=== PATIENT | female | born 1985 | race African-American/Black ===

== ENCOUNTER 2017-10-20 10:42 | Outpatient (CLI) | payer BC ==
[2017-10-20 11:24] LABS: BILIRUBIN,URINE NEGATIVE (NEGATIVE)
[2017-10-20 11:39] LABS: WBC,URINE 0-3 /HPF (0-5)
[2017-10-20 11:45] LABS: BASOPHILS % (AUTO) 0.4 %; EOSINOPHILS # (AUTO) 0.1 10^3/uL (0.0-0.7); EOSINOPHILS % (AUTO) 1.1 %; HGB - HEMOGLOBIN 14.8 g/dL (12.0-16.0); LYMPHOCYTES # (AUTO) 2.2 10^3/uL (1.5-3.5); LYMPHOCYTES % (AUTO) 28.9 %; MEAN CORPUSCULAR HEMOGLOBIN 30.3 pg (27.0-31.0); MEAN CORPUSCULAR HGB CONC 34.3 g/dL (32.0-36.0); MEAN CORPUSCULAR VOLUME 88.2 fL (81.0-99.0); MEAN PLATELET VOLUME 9.8 fL (7.9-10.8); MONOCYTES # (AUTO) 0.4 10^3/uL (0.0-1.0); MONOCYTES % (AUTO) 5.8 %; NEUTROPHILS # (AUTO) 4.9 10^3/uL (1.5-6.6); NEUTROPHILS % (AUTO) 63.8 %; NUCLEATED RED BLOOD CELLS AUTO 0.1 /100WBC; RED BLOOD COUNT 4.88 10^6/uL (4.20-5.40); RED CELL DISTRIBUTION WIDTH 12.4 % (12.0-15.0); UNCORRECTED WHITE BLOOD COUNT 7.7 x10^3/uL; WHITE BLOOD COUNT 7.7 x10^3/uL (4.8-10.8)
[2017-10-21 10:12] LABS: TEST RESULT REPORT
== END 2017-10-20 10:43 | disposition home or self-care (01) ==
LOC: LAB 10:42
PROVIDERS: ATTEND Obstetrics & Gynecology
DX: Z36.9 Encounter for antenatal screening, unspecified (principal)
CPT/HCPCS: 36415; 81001; 81599; 85025; 86762; 86803; 86850; 86900; 86901; 87340; 87389

== ENCOUNTER 2017-11-10 10:23 | Outpatient (CLI) | payer BC ==
--- NOTE | 2017-11-11 08:59 | Ultrasound Report ---
DATE OF SERVICE: 11/10/2017 EARLY SECOND TRIMESTER ULTRASOUND: 11/10/2017 COMPARISON: None TECHNIQUE: Sonographic evaluation of single intrauterine . FINDINGS: Single intrauterine . PHYSICAL PRESENTATION: variable Cardiac: Heart rate 157 beats per minute. Placenta anterior. Amniotic fluid visually adequate. Cervical length 3.2 cm and closed. biometry: BPD 2.6 cm corresponds to 14 weeks 3 days. Head circumference 9.7 cm corresponds to 14 weeks 3 days. Abdominal circumference 7.9 cm corresponds to 14 weeks 2 days. Femur length 1.3 cm corresponds to 13 weeks 6 days. Estimated weight 91 grams. Maternal adnexa grossly unremarkable. No free fluid in the pelvis. IMPRESSION: Single intrauterine . Estimated gestational age 14 weeks 2 days via current ultrasound with OLGA 05/09/2018. TD: 11/10/2017 19:44 [email or web address]
== END 2017-11-10 10:24 | disposition home or self-care (01) ==
LOC: DI 10:23
PROVIDERS: ATTEND Obstetrics & Gynecology
DX: Z36.87 Encounter for antenatal screening for uncertain dates (principal)
CPT/HCPCS: 76805; 76817

== ENCOUNTER 2017-11-17 08:00 | Outpatient (CLI) | payer BC | END 2017-11-17 08:01 | disposition home or self-care (01) | LOC: LAB.R 08:00 | PROVIDERS: ATTEND Obstetrics & Gynecology | DX: R53.0 Neoplastic (malignant) related fatigue (principal) | CPT/HCPCS: 87086 ==

== ENCOUNTER 2017-12-09 07:12 | Outpatient (CLI) | payer BC ==
--- NOTE | 2017-12-13 10:50 | Ultrasound Report ---
OB ULTRASOUND: 12/09/2017 CLINICAL INDICATION: anatomy. COMPARISON: 11/10/2017. CLINICAL INDICATIONS: anatomy. TECHNIQUE: Real-time scanning was performed with new accounts banking representative static images obtained. LAST MENSTRUAL PERIOD 08/02/2017 Clinical Age 18 weeks 3 days US Age 18 weeks 2 days EFW Hadlock 242 g EFW% Hadlock 49% Heart Rate 142 bpm EDC 05/09/2018 US EDC 05/10/2018 BPD Hadlock 18 weeks 1 day; Mean mm 40.1 HC Hadlock 18 weeks 0 days; Mean mm 148.7 AC Hadlock 18 weeks 3 days; Mean mm 129.4 FL Hadlock 18 weeks 4 days; Mean mm 28.1 Presentation variable Placental Location anterior Cervical Length 3.8 cm Amniotic Fluid 4.4 cm FINDINGS: There is a single viable intrauterine gestation, in variable position. heart rate is 142 BPM. The placenta is anterior, with likely eccentric cord insertion, but it was difficult to visualize due to adjacent parts. Amniotic fluid volume is subjectively normal, with a deepest pocket of 4.4 cm. The placenta is anterior, without evidence of previa. The size of the fetus measures 18 weeks 2 days (18 weeks 3 days by previous sonogram ). The following anatomic structures were visualized and appear normal: The intracranial contents, including the ventricles and posterior fossa; the lips and orbits; the spine; the heart, including 4 chamber view and outflow tracts, and diaphragm; the abdominal contents, including the stomach, the bilateral kidneys, and urinary bladder, as well as a normal 3 vessel cord; 4 limbs. Incidental note is made of an 1.4 cm anterior leiomyoma. No free fluid or adnexal lesion is appreciated. IMPRESSION: SINGLE VIABLE INTRAUTERINE GESTATION WITH EXPECTED GROWTH FROM PREVIOUS SONOGRAM. NORMAL ANATOMIC SURVEY. POSSIBLE ECCENTRIC PLACENTAL CORD INSERTION, BUT THIS WAS DIFFICULT TO EVALUATE DUE TO ADJACENT STRUCTURES. CONSIDER FOLLOWUP IN THE THIRD TRIMESTER. TD: 12/09/2017 14:22 HERMES
== END 2017-12-09 07:13 | disposition home or self-care (01) ==
LOC: DI 07:12
PROVIDERS: ATTEND Obstetrics & Gynecology
DX: Z36.9 Encounter for antenatal screening, unspecified (principal)
CPT/HCPCS: 76811

== ENCOUNTER 2018-01-27 10:55 | Outpatient (CLI) | payer BC ==
--- NOTE | 2018-01-30 15:38 | Ultrasound Report ---
OB FOLLOWUP: 01/27/2018 CLINICAL INDICATION: Check cord insertion into placenta. COMPARISON: 12/09/2017. TECHNIQUE: Real-time scanning was performed with insurance follow up representative static images obtained. LAST MENSTRUAL PERIOD 08/02/2017 Clinical Age 25 weeks 3 days US Age 25 weeks 2 days EFW Hadlock 801 grams EFW% Hadlock 37% Heart Rate 146 bpm EDC 05/09/2018 US EDC 05/10/2018 BPD Hadlock 25 weeks 0 days; Mean mm 62 HC Hadlock 25 weeks 1 day; Mean mm 231 AC Hadlock 25 weeks 1 day; Mean mm 206 FL Hadlock 25 weeks 5 days; Mean mm 47 Presentation variable Placental Location anterior Cervical Length -- Amniotic Fluid MATTHIAS 15.5 cm; FINDINGS: There is a single viable intrauterine gestation, in variable position. heart rate is 146 BPM. Amniotic fluid volume is normal, with an MATTHIAS of 15.5. The cord insertion into the placenta is eccentric, but not marginal. By size, the fetus measures 25 weeks 2 days (25 weeks 3 days by initial sonogram). A small anterior leiomyoma is again noted. IMPRESSION: SINGLE VIABLE INTRAUTERINE GESTATION, WITH EXPECTED GROWTH. ECCENTRIC CORD INSERTION. TD: 01/27/2018 13:17 HERMES
== END 2018-01-27 10:56 | disposition home or self-care (01) ==
LOC: DI 10:55
PROVIDERS: ATTEND Obstetrics & Gynecology
DX: Z36.9 Encounter for antenatal screening, unspecified (principal)
CPT/HCPCS: 76816

== ENCOUNTER 2018-02-15 14:49 | Outpatient (CLI) | payer BC ==
[2018-02-15 19:19] LABS: MEAN CORPUSCULAR HEMOGLOBIN 30.8 pg (27.0-31.0); MEAN CORPUSCULAR HGB CONC 33.7 g/dL (32.0-36.0); MEAN CORPUSCULAR VOLUME 91.4 fL (81.0-99.0); MEAN PLATELET VOLUME 9.9 fL (7.9-10.8); RED BLOOD COUNT 3.59 10^6/uL (4.20-5.40); RED CELL DISTRIBUTION WIDTH 13.6 % (12.0-15.0); WHITE BLOOD COUNT 8.5 x10^3/uL (4.8-10.8)
== END 2018-02-15 14:50 | disposition home or self-care (01) ==
LOC: LAB.N 14:49
PROVIDERS: ATTEND Obstetrics & Gynecology
DX: Z34.90 Encounter for supervision of normal pregnancy, unspecified, unspecified trimester (principal)
CPT/HCPCS: 36415; 82950; 86850

== ENCOUNTER 2018-02-26 20:22 | Outpatient (CLI) | payer BC ==
[2018-02-26 20:43] LABS: BILIRUBIN,URINE NEGATIVE (NEGATIVE); GLUCOSE, URINE (UA) NEGATIVE (NEGATIVE); KETONES,URINE (UA) NEGATIVE (NEGATIVE); LEUKOCYTE ESTERASE, URINE NEGATIVE (NEGATIVE); NITRITE,URINE NEGATIVE (NEGATIVE); OCCULT BLOOD,URINE NEGATIVE (NEGATIVE); PH,URINE 6.5 PH (5.0-7.5); PROTEIN,URINE NEGATIVE (NEGATIVE); UROBILINOGEN,URINE 0.2 (NORMAL) E.U./dL (NORMAL)
[2018-02-26 20:45] LABS: CLARITY,URINE CLEAR (CLEAR)
[2018-02-26 20:53] LABS: BACTERIA,URINE Moderate /HPF (None Seen); RBC,URINE None Seen /HPF (0-5); SQUAMOUS EPITHELIAL CELL,UR MANY Squamous (<= Few)
[2018-02-26 20:57] VITALS: BP 119/79
[2018-02-26 21:52] LABS: URIC ACID 6.6 mg/dL (2.6-7.2)
[2018-02-26 21:57] LABS: BASOPHILS % (AUTO) 0.3 %; EOSINOPHILS # (AUTO) 0.2 10^3/uL (0.0-0.7); EOSINOPHILS % (AUTO) 1.9 %; HGB - HEMOGLOBIN 10.2 g/dL (12.0-16.0); LYMPHOCYTES % (AUTO) 37.7 %; MEAN CORPUSCULAR HEMOGLOBIN 30.2 pg (27.0-31.0); MEAN CORPUSCULAR HGB CONC 33.1 g/dL (32.0-36.0); MEAN CORPUSCULAR VOLUME 91.4 fL (81.0-99.0); MEAN PLATELET VOLUME 9.8 fL (7.9-10.8); MONOCYTES # (AUTO) 0.5 10^3/uL (0.0-1.0); MONOCYTES % (AUTO) 5.7 %; NEUTROPHILS # (AUTO) 4.3 10^3/uL (1.5-6.6); NEUTROPHILS % (AUTO) 54.4 %; PLT - PLATELET COUNT 169 10^3/uL (130-450); RED BLOOD COUNT 3.39 10^6/uL (4.20-5.40); RED CELL DISTRIBUTION WIDTH 12.9 % (12.0-15.0); WHITE BLOOD COUNT 7.9 x10^3/uL (4.8-10.8)
== END 2018-02-26 21:45 | disposition home or self-care (01) ==
LOC: WFO 20:22 → FBP 20:24 → WFO 21:45
PROVIDERS: ATTEND Obstetrics & Gynecology
DX: O12.03 Gestational edema, third trimester (principal); Z3A.29 29 weeks gestation of pregnancy
CPT/HCPCS: 36415; 81001; 83615; 84450; 84550; 85025; 87086; 99213

== ENCOUNTER 2018-03-02 15:00 | Emergency (ER) | payer BC ==
[2018-03-02 15:15] VITALS: BP 130/79
--- NOTE | 2018-03-02 15:27 | ED Physician Documentation ---
PD HPI ABD PAIN - Stated complaint Stated Complaint: ABD PX/CHEST PX/30 WKS PREG - Chief complaint Chief Complaint: Abd Pain - History obtained from History obtained from: Patient - History of Present Illness Timing - onset: Today ( at 30 weeks gestation presents with central abdominal pain that comes about every 10 minutes and lasts about 2 minutes and feels like a squeezing. There is no associated bleeding or fluid loss. She does have some mild right-sided chest pain as well and pedal edema for the last week. She is a patient of Dr. Sanchez.) Review of Systems Ten Systems: 10 systems reviewed and negative Constitutional: denies: Fever, Chills Respiratory: denies: Dyspnea GI: denies: Nausea, Constipation, Diarrhea PD PAST MEDICAL HISTORY - Past Medical History Past Medical History: No - Present Medications Home Medications: Ambulatory Orders Medication Instructions Recorded Confirmed [id number]/FA/Omega3/Dha/Fish Oil 03/02/18 [ Gummies] - Allergies Allergies/Adverse Reactions: Allergies Allergy/AdvReac Type Severity Reaction Status Date / Time No Known Drug Allergies Allergy Verified 03/02/18 15:15 - Living Situation Living Situation: reports: With spouse/s.o. - Social History Does the pt smoke?: No Does the pt drink ETOH?: No Does the pt have substance abuse?: No - Family History Family history: reports: Non contributory PD ED PE NORMAL - Vitals Vital signs reviewed: Yes - General General: Alert and oriented X 3, No acute distress - HEENT HEENT: PERRL, EOMI - Neck Neck: Supple, no meningeal sign, No bony TTP - Cardiac Cardiac: RRR, No murmur - Respiratory Respiratory: No respiratory distress, Clear bilaterally - Abdomen Abdomen: Normal bowel sounds, Soft, Non tender, Other (gravid) - Back Back: No CVA TTP, No spinal TTP - Derm Derm: Normal color, Warm and dry - Extremities Extremities: Other (mod pedal edema) - Neuro Neuro: Alert and oriented X 3, Normal speech - Psych Psych: Normal mood, Normal affect Results - Vitals Vitals: Vital Signs - 24 hr 03/02/18 15:13 Temperature 36.7 C Heart Rate 82 Respiratory 16 Rate Blood Pressure 130/79 O2 Saturation 100 Oxygen O2 Source Room air PD MEDICAL DECISION MAKING - ED course ED course: 33-year-old woman whose main complaint is central squeezing abdominal pain that lasts for 2 minutes and comes about every 10 minutes starting today. She is 30 weeks . There is no fluid loss or bleeding. She has slightly decreased motion today. This is concerning for early labor and after my initial evaluation I called her OB Dr. Kathy Bhatti who will see her in labor and delivery and she will be immediately transferred across the [place]. Departure - Departure Disposition: ED Place in Observation Clinical Impression: Abdominal pain Qualifiers: Abdominal location: generalized Qualified Code(s): R10.84 - Generalized abdominal pain Qualifiers: Weeks of gestation: 30 weeks Qualified Code(s): Z3A.30 - 30 weeks gestation of Condition: Stable
[2018-03-02 15:40] LABS: BILIRUBIN,URINE NEGATIVE (NEGATIVE); GLUCOSE, URINE (UA) NEGATIVE (NEGATIVE); KETONES,URINE (UA) TRACE mg/dL (NEGATIVE); LEUKOCYTE ESTERASE, URINE NEGATIVE (NEGATIVE); NITRITE,URINE NEGATIVE (NEGATIVE); OCCULT BLOOD,URINE NEGATIVE (NEGATIVE); PH,URINE 6.5 PH (5.0-7.5); PROTEIN,URINE 30 mg/dL (NEGATIVE); UROBILINOGEN,URINE 0.2 (NORMAL) E.U./dL (NORMAL)
[2018-03-02 15:42] LABS: CLARITY,URINE HAZY (CLEAR)
[2018-03-02 15:59] LABS: RBC,URINE 0-5 /HPF (0-5)
[2018-03-02 16:00] LABS: AMORPHOUS SEDIMENT,UR Rare /LPF; BACTERIA,URINE Many /HPF (None Seen); SQUAMOUS EPITHELIAL CELL,UR MANY Squamous (<= Few)
== END 2018-03-02 15:35 | disposition home or self-care (01) ==
LOC: ED 15:00
DX: O26.893 Other specified pregnancy related conditions, third trimester (principal); R10.84 Generalized abdominal pain; Z3A.30 30 weeks gestation of pregnancy
CPT/HCPCS: 36415; 81001; 81003; 82565; 82570; 82731; 83615; 84156; 84450; 85025; 87086; 87797; 99283

== ENCOUNTER 2018-03-02 15:48 | Outpatient (CLI) | payer BC ==
[2018-03-02 16:11] VITALS: BP 135/80
[2018-03-02 16:47] LABS: BASOPHILS % (AUTO) 0.4 %; EOSINOPHILS # (AUTO) 0.2 10^3/uL (0.0-0.7); EOSINOPHILS % (AUTO) 2.9 %; HGB - HEMOGLOBIN 9.9 g/dL (12.0-16.0); LYMPHOCYTES # (AUTO) 2.6 10^3/uL (1.5-3.5); LYMPHOCYTES % (AUTO) 30.7 %; MEAN CORPUSCULAR HEMOGLOBIN 30.6 pg (27.0-31.0); MEAN CORPUSCULAR HGB CONC 33.5 g/dL (32.0-36.0); MEAN CORPUSCULAR VOLUME 91.3 fL (81.0-99.0); MEAN PLATELET VOLUME 9.4 fL (7.9-10.8); MONOCYTES # (AUTO) 0.7 10^3/uL (0.0-1.0); MONOCYTES % (AUTO) 8.2 %; NEUTROPHILS # (AUTO) 4.9 10^3/uL (1.5-6.6); NEUTROPHILS % (AUTO) 57.8 %; PLT - PLATELET COUNT 160 10^3/uL (130-450); RED BLOOD COUNT 3.25 10^6/uL (4.20-5.40); RED CELL DISTRIBUTION WIDTH 12.9 % (12.0-15.0); WHITE BLOOD COUNT 8.4 x10^3/uL (4.8-10.8)
[2018-03-02 16:57] LABS: CREATININE 0.6 mg/dL (0.4-1.0)
[2018-03-02 17:24] LABS: CREATININE,URINE 202.2 mg/dL; PROTEIN/CREATININE RATIO,URINE 0.2 (<=0.2)
== END 2018-03-02 17:55 | disposition home or self-care (01) ==
LOC: WFO 15:48 → FBP 15:50 → WFO 17:55
PROVIDERS: ATTEND Obstetrics & Gynecology
DX: O26.893 Other specified pregnancy related conditions, third trimester (principal); R10.9 Unspecified abdominal pain; Z3A.30 30 weeks gestation of pregnancy
CPT/HCPCS: 36415; 82565; 82570; 82731; 83615; 84156; 84450; 85025; 87797

== ENCOUNTER 2018-03-03 04:27 | Outpatient (CLI) | payer BC ==
[2018-03-03 19:54] LABS: TOTAL VOLUME 24HRS,URINE 1250 mL
[2018-03-03 20:02] LABS: TOTAL PROTEIN 24HR,URINE 200 mg/24hr (40-150); TOTAL PROTEIN,URINE TIMED 16 mg/dL
== END 2018-03-03 23:59 ==
LOC: LAB.R 04:27
PROVIDERS: ATTEND Obstetrics & Gynecology
DX: O13.9 Gestational [pregnancy-induced] hypertension without significant proteinuria, unspecified trimester (principal)
CPT/HCPCS: 84156

== ENCOUNTER 2018-03-09 19:03 | Observation (INO) | payer BC ==
[2018-03-09 20:00] LABS: BILIRUBIN,URINE NEGATIVE (NEGATIVE); GLUCOSE, URINE (UA) NEGATIVE (NEGATIVE); KETONES,URINE (UA) NEGATIVE (NEGATIVE); LEUKOCYTE ESTERASE, URINE NEGATIVE (NEGATIVE); NITRITE,URINE NEGATIVE (NEGATIVE); OCCULT BLOOD,URINE NEGATIVE (NEGATIVE); PROTEIN,URINE 30 mg/dL (NEGATIVE); UROBILINOGEN,URINE 0.2 (NORMAL) E.U./dL (NORMAL)
[2018-03-09 20:01] LABS: BASOPHILS % (AUTO) 0.2 %; EOSINOPHILS # (AUTO) 0.2 10^3/uL (0.0-0.7); EOSINOPHILS % (AUTO) 2.1 %; HGB - HEMOGLOBIN 10.4 g/dL (12.0-16.0); LYMPHOCYTES # (AUTO) 2.9 10^3/uL (1.5-3.5); MEAN CORPUSCULAR HEMOGLOBIN 30.1 pg (27.0-31.0); MEAN CORPUSCULAR HGB CONC 33.4 g/dL (32.0-36.0); MEAN CORPUSCULAR VOLUME 90.1 fL (81.0-99.0); MEAN PLATELET VOLUME 9.9 fL (7.9-10.8); MONOCYTES # (AUTO) 0.6 10^3/uL (0.0-1.0); MONOCYTES % (AUTO) 5.9 %; NEUTROPHILS # (AUTO) 6.4 10^3/uL (1.5-6.6); NEUTROPHILS % (AUTO) 62.8 %; PLT - PLATELET COUNT 182 10^3/uL (130-450); RED BLOOD COUNT 3.45 10^6/uL (4.20-5.40); RED CELL DISTRIBUTION WIDTH 12.9 % (12.0-15.0); WHITE BLOOD COUNT 10.1 x10^3/uL (4.8-10.8)
[2018-03-09 20:03] LABS: CLARITY,URINE CLEAR (CLEAR)
--- NOTE | 2018-03-09 20:05 | PROVIDER PROGRESS NOTE ---
Subjective - Prog Note Date Prog Note Date: 03/09/18 Prog Note Time: 19:55 - Subjective Pt reports feeling: No change Subjective: Mary is a 33-year-old primigravida at 31 weeks and 1 day gestation who achieved with assisted reproduction/IVF. Today she notes increased pedal edema with mild headache. On November 17 her baseline blood pressure was 102/60 at 15 weeks EGA. Patient denies history of hypertension or cardiovascular disease. Today's blood pressure is 132/70. She awoke with headache and swollen face. She has no sinus difficulties postnasal drip or allergic rhinitis. She reports no visual changes. She reports no epigastric tenderness but notes mild nausea. She is able to hold liquids and solids down. On March 02, she was evaluated by Dr. Maloney for decreased movement and NST was reactive. At that time she was noted to be anemic with a hemoglobin of 9.9 and platelets of 160. Creatinine is 0.6 AST 25 and urine protein creatinine ratio was normal at 0.2. 24 hour urine protein was 200 g. fibronectin negative Objective - Vital Signs/Intake & Output Vital Signs: Vital Signs x48h Temp Pulse Resp BP Pulse Ox 03/09/18 19:20 99.3 F 75 16 135/75 H 99 - Lab Results Fish Bones: 03/09/18 19:35 03/09/18 19:35 Exam - Exam Vital Signs: Vital Signs (72 hours) 03/09/18 19:20 Temperature 99.3 F Heart Rate [ 75 Monitoring electrodes] Respiratory 16 Rate Blood Pressure 135/75 H [Left Brachial artery] O2 Saturation 99 General: Alert, Oriented x3, Cooperative HEENT: EOMI, Mucous membr. moist/pink, Other (No sinus tenderness;) Lungs: Clear to auscultation Cardiovascular: Regular rate, No murmurs Abdomen: Normal bowel sounds, No tenderness, Other (Uterus appropriate size soft nontender no contractions; external monitor tracing category 1 with rare contractions baseline 130s-140s moderate variability) Extremities: Other (Patient has moderate pitting edema extending up 10 cm from the ankle bilaterally) Neurological: Normal gait, Normal speech, Normal tone, Sensation intact, Cranial nerves 3-12 NL, Reflexes 2+ Psych/Mental Status: Mental status NL, Mood NL Assessment/Plan - Assessment/Plan Assessment: IVF pregnancies are known to have a greater incidence of complications such as preeclampsia/gestational hypertension. Her current blood pressure is not hypertensive but is elevated over her baseline BP at 15 weeks gestation. Her labs from 02 March were not alarming. However today's labs show an increase in the urine protein / creatinine ratio and probable increase in edema. Platelets remain stable. To establish the diagnosis of preeclampsia blood pressure measurements and urine proteins must be 6 hours apart. Await liver enzyme data Plan: High probability of mild preeclampsia or greater but to establish the diagnosis further observation is required. There is significant probability of delivery due to the progression of preeclampsia. Patient converted to observation status
[2018-03-09 20:10] LABS: BACTERIA,URINE Few /HPF (None Seen); CREATININE,URINE 54.2 mg/dL; PROTEIN/CREATININE RATIO,URINE 0.8 (<=0.2); RBC,URINE 3 /HPF (0-5); SQUAMOUS EPITHELIAL CELL,UR MOD Squamous (<= Few)
[2018-03-09 20:13] LABS: URIC ACID 7.2 mg/dL (2.6-7.2)
[2018-03-09 20:38] LABS: ALBUMIN 2.8 g/dL (3.2-5.5); ALBUMIN/GLOBULIN RATIO 0.9 (1.0-2.2); BILIRUBIN,TOTAL 0.4 mg/dL (0.2-1.0); CALCIUM 8.3 mg/dL (8.5-10.3); CREATININE 0.6 mg/dL (0.4-1.0); TOTAL PROTEIN 5.9 g/dL (6.7-8.2)
[2018-03-09] MEDS ORDERED: SODIUM CHLORIDE FLUSH 0.9% 10 ML SYRINGE IVP PRN (21:25)
[2018-03-09] MEDS ORDERED: ACETAMINOPHEN 325 MG TABLET PO PRN (21:25)
[2018-03-09] MEDS ORDERED: ZOLPIDEM 5 MG TABLET PO PRN (21:25)
[2018-03-09] MEDS ORDERED: PRENATAL VITAMIN TABLET PO SCH (22:00)
[2018-03-09] MEDS ORDERED: BETAMETHASONE 30 MG/5 ML VIAL IM ONE (22:31)
[2018-03-09] MEDS: ASPIRIN CHEW 81 MG TABLET PO SCH (22:58)
--- NOTE | 2018-03-09 23:18 | Ultrasound Report ---
EXAM: LIMITED OBSTETRICAL ULTRASOUND EXAM DATE: 03/09/2018 10:58 PM. CLINICAL HISTORY: Small for gestational age. Likely preeclampsia. COMPARISON: 01/28/2080. TECHNIQUE: Real-time sonographic evaluation of the fetus performed by the scroll assembler. Multiple repre sentative static images were saved for review. DATING: Established EGA 31 weeks 1 day with OLGA 05/10/2018 based on LMP. EGA 30 weeks 3 days with OLGA 05/15/2018 based on the current ultrasound. GENERAL EVALUATION King . Cardiac activity: 145 bpm. movement: Visualized. Presentation: Cephalic. Placenta: Anterior position. No evidence for previa. Umbilical cord: 3 vessel cord. Central placental cord origin. Amniotic fluid: MATTHIAS 15.4 cm. MVP 4.6 cm. BIOMETRY Bi-Parietal Diameter (BPD): 7.7 cm, 31 weeks 0 days Head Circumference (HC): 28.4 cm, 31 weeks 1 day Abdominal Circumference (AC): 26.5 cm, 30 weeks 4 days Femur Length (FL): 5.7 cm, 29 weeks 5 days Estimated Weight: 1574 gm, 37.2 percentile for weeks/days. MATERNAL STRUCTURES Uterus: Anterior fibroid 2.3 x 1.4 x 0.8 cm. IMPRESSION: 1. King live intrauterine with gestational age 31 weeks 1 day based on LMP. 2. Estimated weight is within expected limits for assigned dating. AMOS Referring Provider Line: [phone] SITE ID: [id number]
--- NOTE | 2018-03-09 23:18 | Ultrasound Preliminary Report ---
Exam: US OB LIMITED IMPRESSION: 1. King live intrauterine with gestational age 31 weeks 1 day based on LMP. 2. Estimated weight is within expected limits for assigned dating. RADI SITE ID: [id number]
--- NOTE | 2018-03-09 23:22 | HISTORY & PHYSICAL EXAMINATION ---
DATE OF SERVICE: 03/09/2018 Physician: Perez Gregg MD DIAGNOSES 1. Marked edema. 2. Epigastric / Liver tenderness. 3. Headache. 4. Blood pressure above baseline. HISTORY OF PRESENT ILLNESS: Patient is a 33-year-old primigravida at 31 weeks' and 1 day gestation who achieved through assisted reproduction/IVF. Today, she reports persistent mild headache, increased lower extremity and facial swelling accompanied by an epigastric tenderness. Her baseline blood pressure at 15 weeks' gestation was 102/60. Currently, it is 135/75. She was evaluated on 03/02/[address] Bhatti for possibility of preeclampsia. At that time, her urine protein creatinine ratio was 0.2 and 24- hour urine protein 200 mg. She was discharged home. In terms of her headache, she has no sinus difficulties, postnasal drip, or allergic rhinitis. She does not report visual changes other than blurry vision. She does not suspect labor or ruptured membranes. Currently, she is able to hold down oral liquids and solids. During her evaluation earlier today, her urine protein-creatinine ratio tamie to 0.8. Her platelets stayed stable at 182. There was mild hyponatremia at 29. Liver enzymes appeared to be normal. PAST MEDICAL HISTORY: Patient has no history of hypertension or cardiovascular disease. 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 . IVF embryo transfers x2. Her first embryo transfer resulted in a twin that was spontaneously aborted at 9 weeks. Current is a result of the second embryo transfer. Reference notes from [facility]. GENETICS HISTORY: Strong family history of hypertension inclusive of mother brothers sisters and aunts. Family history of stroke. No known anomalies or familial inheritable disease. SOCIAL HISTORY: Happily . 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 Grew up in [place]. No drug, tobacco or alcohol use. REVIEW OF SYSTEMS CONSTITUTIONAL: Negative. HEENT: Facial edema as noted before. CARDIAC: Negative. PULMONARY: Negative. GI: Negative. : Reference HPI. MUSCULOSKELETAL: Edema, otherwise negative. NEUROLOGIC: Normal. SKIN: Normal. LYMPHATIC/HEMATOLOGIC: Normal. PHYSICAL EXAMINATION GENERAL: Patient quiet, lying on a stretcher. VITAL SIGNS: Temperature 99.3, pulse 75, respirations 116, blood pressure 135/ 75, pulse oximetry 99%. HEENT: Supple neck. No thyromegaly. Moist mucous membranes. EOMI. PERRLA. No icterus. Thyroid normal size. No nodules or tenderness. LUNGS: Clear to auscultation. CARDIAC: Regular rate. No significant murmur, other than murmur of . BREASTS: Symmetric, full. No mass or tenderness. ABDOMEN: Nondistended. Liver span increased to 12 cm with mild tenderness. No Lee's sign or gallbladder tenderness. No other tenderness found.Normal bowel sounds. UTERUS: Approximately 29 cm, normal resting tone. No contractions noted. Vertex by Zoltan maneuvers. PELVIC EXAM: A pelvic exam was not completed because patient has no contractions or suspicion of labor. EXTREMITIES: Marked bilateral pitting edema extending up 10-12 cm from the ankles bilaterally. Finger edema and mild facial edema. NEUROLOGIC: Normal speech, normal tone and sensation. Cranial nerves grossly intact. Reflexes 2+. SKIN: No lesions found or rash. LABORATORY DATA: Hemoglobin 10.4, platelets 182. Sodium 129, potassium 3.8. Urine protein-creatinine ratio is 0.8. Urinalysis +3 proteinuria. Serum creatinine 0.6, glucose 95, uric acid 7.2, total bilirubin 0.4, AST 26, total protein low at 5.9, albumin low 2.8. ASSESSMENT: IVF pregnancies are known to have a greater incidence of complications, particularly preeclampsia/gestational hypertension. Her current blood pressure is not hypertensive but significantly elevated over her baseline BP. Today's labs show urine protein-creatinine ratio consistent with a preeclamptic process in evolution. Her increase in edema from my last encounter is remarkable. Her right upper quadrant/ epigastric gastric complaints and tenderness do not correspond to any hepatic enzyme changes as of yet. A diagnosis of preeclampsia requires blood pressure and laboratory measurements at least 6 hours apart. Given the degree of risk and the quick evolution of clinical signs, caution is warranted. Moreover, patient will probably not deliver at term, particularly if the process continues to evolve. PLAN 1. Observation with serial blood pressure checks. 2. Serial lab checks to determine if the preeclamptic process is accelerating. 3. Mini dose aspirin daily. 4. Will review case with Maternal Medicine once the laboratory data is complete. It may be vee for patient to have a visit at [facility]. 5. Course of betamethasone 12 mg every 24 hours 2 doses total 6. Fundal height still like lagging. Prior growth check ultrasound was at the 37th percentile over a month ago. Will repeat ultrasound TD: 03/09/2018 23:21 HERMES
[2018-03-10] MEDS ORDERED: SODIUM CHLORIDE FLUSH 0.9% 10 ML SYRINGE IVP SCH (01:00)
[2018-03-10 05:18] LABS: BILIRUBIN,URINE NEGATIVE (NEGATIVE); GLUCOSE, URINE (UA) NEGATIVE (NEGATIVE); KETONES,URINE (UA) NEGATIVE (NEGATIVE); LEUKOCYTE ESTERASE, URINE NEGATIVE (NEGATIVE); NITRITE,URINE NEGATIVE (NEGATIVE); OCCULT BLOOD,URINE NEGATIVE (NEGATIVE); PROTEIN,URINE 30 mg/dL (NEGATIVE); UROBILINOGEN,URINE 0.2 (NORMAL) E.U./dL (NORMAL)
[2018-03-10 05:33] LABS: BACTERIA,URINE None Seen /HPF (None Seen); CASTS, URINE 0-2 Granular Casts /LPF; CLARITY,URINE CLEAR (CLEAR); RBC,URINE None Seen /HPF (0-5); SQUAMOUS EPITHELIAL CELL,UR RARE Squamous (<= Few)
[2018-03-10 05:57] LABS: BASOPHILS % (AUTO) 0.2 %; EOSINOPHILS % (AUTO) 0.2 %; HGB - HEMOGLOBIN 10.2 g/dL (12.0-16.0); LYMPHOCYTES # (AUTO) 2.1 10^3/uL (1.5-3.5); LYMPHOCYTES % (AUTO) 20.1 %; MEAN CORPUSCULAR HEMOGLOBIN 30.5 pg (27.0-31.0); MEAN CORPUSCULAR HGB CONC 33.8 g/dL (32.0-36.0); MEAN CORPUSCULAR VOLUME 90.4 fL (81.0-99.0); MEAN PLATELET VOLUME 9.8 fL (7.9-10.8); MONOCYTES # (AUTO) 0.2 10^3/uL (0.0-1.0); MONOCYTES % (AUTO) 2.1 %; NEUTROPHILS # (AUTO) 8.2 10^3/uL (1.5-6.6); NEUTROPHILS % (AUTO) 77.4 %; PLT - PLATELET COUNT 158 10^3/uL (130-450); RED BLOOD COUNT 3.34 10^6/uL (4.20-5.40); RED CELL DISTRIBUTION WIDTH 12.9 % (12.0-15.0); WHITE BLOOD COUNT 10.6 x10^3/uL (4.8-10.8)
[2018-03-10 06:10] LABS: URIC ACID 7.3 mg/dL (2.6-7.2)
[2018-03-10] MEDS: ASPIRIN CHEW 81 MG TABLET PO SCH (08:42)
[2018-03-10] MEDS ORDERED: POLYETHYLENE GLYCOL 3350 17 GM PACKET PO SCH (09:00)
[2018-03-10 09:01] VITALS: BP 122/80
--- NOTE | 2018-03-10 10:16 | PROVIDER PROGRESS NOTE ---
Subjective - Prog Note Date Prog Note Date: 03/10/18 Prog Note Time: 07:00 - Subjective Subjective: Mary is awake and eating breakfast. She reports a mild frontal headache but no visual changes. Her nausea and epigastric complaints persist. She continues to have lower extremity, facial and finger edema. Objective - Vital Signs/Intake & Output Vital Signs: Vital Signs x48h Temp Pulse Resp BP BP Pulse Ox 03/10/18 08:45 122/80 03/10/18 07:45 130/76 03/10/18 07:36 72 16 132/74 H 99 03/10/18 05:00 98.4 F 77 18 114/66 98 - Lab Results Fish Bones: 03/10/18 05:33 03/09/18 19:35 Other Labs: Lab Results x24hrs 03/10/18 03/10/18 03/10/18 Range/Units 05:33 05:33 05:33 WBC 10.6 (4.8-10.8) x10^3/uL RBC 3.34 L (4.20-5.40) 10^6/uL Hgb 10.2 L (12.0-16.0) g/dL Hct 30.1 L (37.0-47.0) % MCV 90.4 (81.0-99.0) fL MCH 30.5 (27.0-31.0) pg MCHC 33.8 (32.0-36.0) g/dL RDW 12.9 (12.0-15.0) % Plt Count 158 (130-450) 10^3/uL MPV 9.8 (7.9-10.8) fL Neut # 8.2 H (1.5-6.6) 10^3/uL Lymph # 2.1 (1.5-3.5) 10^3/uL [place] # 0.2 (0.0-1.0) 10^3/uL Eos # 0.0 (0.0-0.7) 10^3/uL Baso # 0.0 (0.0-0.1) 10^3/uL Absolute Nucleated RBC 0.01 x10^3/uL Nucleated RBC % 0.1 /100WBC Sodium (135-145) mmol/L Potassium (3.5-5.0) mmol/L Chloride (101-111) mmol/L Carbon Dioxide (21-32) mmol/L Anion Gap (6-13) BUN (6-20) mg/dL Creatinine (0.4-1.0) mg/dL Estimated GFR (MDRD) (>89) Glucose (70-100) mg/dL Uric Acid 7.3 H (2.6-7.2) mg/dL Calcium (8.5-10.3) mg/dL Total Bilirubin (0.2-1.0) mg/dL AST 24 (10-42) IU/L ALT (10-60) IU/L Alkaline Phosphatase (42-121) IU/L Lactate Dehydrogenase 179 (91-225) IU/L Total Protein (6.7-8.2) g/dL Albumin (3.2-5.5) g/dL Globulin (2.1-4.2) g/dL Albumin/Globulin Ratio (1.0-2.2) Urine Color Urine Clarity (CLEAR) Urine pH (5.0-7.5) PH Ur Specific [place] (1.002-1.030) Urine Protein (NEGATIVE) mg/dL Urine Glucose (UA) (NEGATIVE) mg/dL Urine Ketones (NEGATIVE) mg/dL Urine Occult Blood (NEGATIVE) Urine Nitrite (NEGATIVE) Urine Bilirubin (NEGATIVE) Urine Urobilinogen (NORMAL) E.U./dL Ur Leukocyte Esterase (NEGATIVE) Urine RBC (0-5) /HPF Urine WBC (0-5) /HPF Ur Squamous Epith Cells (<= Few) Urine Bacteria (None Seen) /HPF Urine Casts /LPF Ur Microscopic Review Urine Culture Comments Urine Creatinine mg/dL Ur Total Protein Timed mg/dL Protein/Creatinin Ratio (<=0.2) 03/10/18 03/09/18 03/09/18 Range/Units 05:05 19:35 19:35 WBC (4.8-10.8) x10^3/uL RBC (4.20-5.40) 10^6/uL Hgb (12.0-16.0) g/dL Hct (37.0-47.0) % MCV (81.0-99.0) fL MCH (27.0-31.0) pg MCHC (32.0-36.0) g/dL RDW (12.0-15.0) % Plt Count (130-450) 10^3/uL MPV (7.9-10.8) fL Neut # (1.5-6.6) 10^3/uL Lymph # (1.5-3.5) 10^3/uL [place] # (0.0-1.0) 10^3/uL Eos # (0.0-0.7) 10^3/uL Baso # (0.0-0.1) 10^3/uL Absolute Nucleated RBC x10^3/uL Nucleated RBC % /100WBC Sodium 129 L (135-145) mmol/L Potassium 3.8 (3.5-5.0) mmol/L Chloride 101 (101-111) mmol/L Carbon Dioxide 21 (21-32) mmol/L Anion Gap 7.0 (6-13) BUN 9 (6-20) mg/dL Creatinine 0.6 (0.4-1.0) mg/dL Estimated GFR (MDRD) 140 (>89) Glucose 95 (70-100) mg/dL Uric Acid 7.2 (2.6-7.2) mg/dL Calcium 8.3 L (8.5-10.3) mg/dL Total Bilirubin 0.4 (0.2-1.0) mg/dL AST 26 25 (10-42) IU/L ALT 14 (10-60) IU/L Alkaline Phosphatase 82 (42-121) IU/L Lactate Dehydrogenase (91-225) IU/L Total Protein 5.9 L (6.7-8.2) g/dL Albumin 2.8 L (3.2-5.5) g/dL Globulin 3.1 (2.1-4.2) g/dL Albumin/Globulin Ratio 0.9 L (1.0-2.2) Urine Color YELLOW Urine Clarity CLEAR (CLEAR) Urine pH 6.0 (5.0-7.5) PH Ur Specific [place] 1.010 (1.002-1.030) Urine Protein 30 H (NEGATIVE) mg/dL Urine Glucose (UA) NEGATIVE (NEGATIVE) mg/dL Urine Ketones NEGATIVE (NEGATIVE) mg/dL Urine Occult Blood NEGATIVE (NEGATIVE) Urine Nitrite NEGATIVE (NEGATIVE) Urine Bilirubin NEGATIVE (NEGATIVE) Urine Urobilinogen 0.2 (NORMAL) (NORMAL) E.U./dL Ur Leukocyte Esterase NEGATIVE (NEGATIVE) Urine RBC None Seen (0-5) /HPF Urine WBC 0-3 (0-5) /HPF Ur Squamous Epith Cells RARE Squamous (<= Few) Urine Bacteria None Seen (None Seen) /HPF Urine Casts 0-2 Granular Casts /LPF Ur Microscopic Review INDICATED Urine Culture Comments NOT INDICATED Urine Creatinine mg/dL Ur Total Protein Timed mg/dL Protein/Creatinin Ratio (<=0.2) 03/09/18 03/09/18 03/09/18 Range/Units 19:35 19:35 19:10 WBC 10.1 (4.8-10.8) x10^3/uL RBC 3.45 L (4.20-5.40) 10^6/uL Hgb 10.4 L (12.0-16.0) g/dL Hct 31.1 L (37.0-47.0) % MCV 90.1 (81.0-99.0) fL MCH 30.1 (27.0-31.0) pg MCHC 33.4 (32.0-36.0) g/dL RDW 12.9 (12.0-15.0) % Plt Count 182 (130-450) 10^3/uL MPV 9.9 (7.9-10.8) fL Neut # 6.4 (1.5-6.6) 10^3/uL Lymph # 2.9 (1.5-3.5) 10^3/uL [place] # 0.6 (0.0-1.0) 10^3/uL Eos # 0.2 (0.0-0.7) 10^3/uL Baso # 0.0 (0.0-0.1) 10^3/uL Absolute Nucleated RBC 0.03 x10^3/uL Nucleated RBC % 0.3 /100WBC Sodium (135-145) mmol/L Potassium (3.5-5.0) mmol/L Chloride (101-111) mmol/L Carbon Dioxide (21-32) mmol/L Anion Gap (6-13) BUN (6-20) mg/dL Creatinine (0.4-1.0) mg/dL Estimated GFR (MDRD) (>89) Glucose (70-100) mg/dL Uric Acid (2.6-7.2) mg/dL Calcium (8.5-10.3) mg/dL Total Bilirubin (0.2-1.0) mg/dL AST (10-42) IU/L ALT (10-60) IU/L Alkaline Phosphatase (42-121) IU/L Lactate Dehydrogenase 190 (91-225) IU/L Total Protein (6.7-8.2) g/dL Albumin (3.2-5.5) g/dL Globulin (2.1-4.2) g/dL Albumin/Globulin Ratio (1.0-2.2) Urine Color Urine Clarity (CLEAR) Urine pH (5.0-7.5) PH Ur Specific [place] (1.002-1.030) Urine Protein (NEGATIVE) mg/dL Urine Glucose (UA) (NEGATIVE) mg/dL Urine Ketones (NEGATIVE) mg/dL Urine Occult Blood (NEGATIVE) Urine Nitrite (NEGATIVE) Urine Bilirubin (NEGATIVE) Urine Urobilinogen (NORMAL) E.U./dL Ur Leukocyte Esterase (NEGATIVE) Urine RBC (0-5) /HPF Urine WBC (0-5) /HPF Ur Squamous Epith Cells (<= Few) Urine Bacteria (None Seen) /HPF Urine Casts /LPF Ur Microscopic Review Urine Culture Comments Urine Creatinine 54.2 mg/dL Ur Total Protein Timed 43 mg/dL Protein/Creatinin Ratio 0.8 H (<=0.2) 03/09/18 Range/Units 19:10 WBC (4.8-10.8) x10^3/uL RBC (4.20-5.40) 10^6/uL Hgb (12.0-16.0) g/dL Hct (37.0-47.0) % MCV (81.0-99.0) fL MCH (27.0-31.0) pg MCHC (32.0-36.0) g/dL RDW (12.0-15.0) % Plt Count (130-450) 10^3/uL MPV (7.9-10.8) fL Neut # (1.5-6.6) 10^3/uL Lymph # (1.5-3.5) 10^3/uL [place] # (0.0-1.0) 10^3/uL Eos # (0.0-0.7) 10^3/uL Baso # (0.0-0.1) 10^3/uL Absolute Nucleated RBC x10^3/uL Nucleated RBC % /100WBC Sodium (135-145) mmol/L Potassium (3.5-5.0) mmol/L Chloride (101-111) mmol/L Carbon Dioxide (21-32) mmol/L Anion Gap (6-13) BUN (6-20) mg/dL Creatinine (0.4-1.0) mg/dL Estimated GFR (MDRD) (>89) Glucose (70-100) mg/dL Uric Acid (2.6-7.2) mg/dL Calcium (8.5-10.3) mg/dL Total Bilirubin (0.2-1.0) mg/dL AST (10-42) IU/L ALT (10-60) IU/L Alkaline Phosphatase (42-121) IU/L Lactate Dehydrogenase (91-225) IU/L Total Protein (6.7-8.2) g/dL Albumin (3.2-5.5) g/dL Globulin (2.1-4.2) g/dL Albumin/Globulin Ratio (1.0-2.2) Urine Color YELLOW Urine Clarity CLEAR (CLEAR) Urine pH 6.0 (5.0-7.5) PH Ur Specific [place] <=1.005 (1.002-1.030) Urine Protein 30 H (NEGATIVE) mg/dL Urine Glucose (UA) NEGATIVE (NEGATIVE) mg/dL Urine Ketones NEGATIVE (NEGATIVE) mg/dL Urine Occult Blood NEGATIVE (NEGATIVE) Urine Nitrite NEGATIVE (NEGATIVE) Urine Bilirubin NEGATIVE (NEGATIVE) Urine Urobilinogen 0.2 (NORMAL) (NORMAL) E.U./dL Ur Leukocyte Esterase NEGATIVE (NEGATIVE) Urine RBC 3 (0-5) /HPF Urine WBC 0-3 (0-5) /HPF Ur Squamous Epith Cells MOD Squamous H (<= Few) Urine Bacteria Few (None Seen) /HPF Urine Casts /LPF Ur Microscopic Review INDICATED Urine Culture Comments NOT INDICATED Urine Creatinine mg/dL Ur Total Protein Timed mg/dL Protein/Creatinin Ratio (<=0.2) Exam - Exam Vital Signs: Vital Signs (72 hours) 03/09/18 03/09/18 03/10/18 19:20 20:44 01:00 Temperature 99.3 F 98.8 F 97.9 F Heart Rate [ 75 84 88 Monitoring electrodes] Respiratory 16 16 16 Rate Blood Pressure 135/75 H 132/72 H [Left Brachial artery] Blood Pressure 111/68 [Right Brachial artery] O2 Saturation 99 99 98 03/10/18 03/10/18 03/10/18 05:00 07:36 07:45 Temperature 98.4 F Heart Rate [ 77 72 Monitoring electrodes] Respiratory 18 16 Rate Blood Pressure 132/74 H 130/76 [Left Brachial artery] Blood Pressure 114/66 [Right Brachial artery] O2 Saturation 98 99 03/10/18 08:45 Temperature Heart Rate [ Monitoring electrodes] Respiratory Rate Blood Pressure 122/80 [Left Brachial artery] Blood Pressure [Right Brachial artery] O2 Saturation General: Alert, Oriented x3, No acute distress HEENT: Mucous membr. moist/pink Abdomen: No masses (Uterus is normal resting tone nontender and a contractile. Morning NST not reactive.), Other (Mild hepatomegaly persists with slight tenderness; negative Lee sign) Extremities: Other (Tibial edema has increased from +10 cm 2+20 cm. Additionally there is puffiness of the hands and face) Neurological: Normal speech, Normal tone, Sensation intact Psych/Mental Status: Mental status NL, Mood NL Assessment/Plan - Assessment/Plan Assessment: Patient's blood pressures remained normotensive however these are nighttime values while the patient is resting. A.m. blood pressure is to be done in the sitting position at heart level and appropriate cuff. Her edema has advanced slightly. I suspect that this is a slowly evolving preeclamptic process and that it will evolve to severe prior to term. Plan: * Biophysical profile today. * Repeat NST and second betamethasone injection tomorrow morning. * Office appointment on Tuesday for reevaluation. * Referral to [facility] for their evaluation and advice. It is anticipated that she will be transferred at some point for induction of labor. * Continue mini dose aspirin daily. * If biophysical profile is normal patient will be allowed to rest at home. Complete warning sign and callback instructions will be reviewed prior to discharge. Patient has adequate transportation to come back to the hospital.
--- NOTE | 2018-03-10 12:02 | Ultrasound Report ---
BIOPHYSICAL PROFILE: 03/09/2018 CLINICAL INDICATION: Nonreactive nonstress test. TECHNIQUE: Real-time scanning was performed with service representative static images obtained. FINDINGS: There is a single viable intrauterine gestation in cephalic presentation. heart rate is 120 BPM. The placenta is anterior, without evidence of previa. The fetus received 0 points for breathing movements, 2 points for movements, 2 points for tone, and 2 points for amniotic fluid volume for a final score of 6/8. MATTHIAS is normal at 15.4. IMPRESSION: A 6/8 BIOPHYSICAL PROFILE. TD: 03/10/2018 12:01
== END 2018-03-10 11:10 | disposition home or self-care (01) ==
LOC: WFO 19:03 → FBP 19:05 → WFO 21:24 → FBP 21:25
PROVIDERS: ADMIT Obstetrics & Gynecology; ATTEND Obstetrics & Gynecology
DX: O14.03 Mild to moderate pre-eclampsia, third trimester (principal); O09.813 Supervision of pregnancy resulting from assisted reproductive technology, third trimester; O99.283 Endocrine, nutritional and metabolic diseases complicating pregnancy, third trimester; E87.1 Hypo-osmolality and hyponatremia; O99.013 Anemia complicating pregnancy, third trimester; D64.9 Anemia, unspecified; Z3A.31 31 weeks gestation of pregnancy; Z90.79 Acquired absence of other genital organ(s); Z82.49 Family history of ischemic heart disease and other diseases of the circulatory system
CPT/HCPCS: 36415; 76815; 76819; 80053; 81001; 82570; 83615; 84156; 84450; 84550; 85025; 96372; 99212; 99218; A9270; 81003; 87086

== ENCOUNTER 2018-03-11 10:49 | Outpatient (CLI) | payer BC ==
[2018-03-11] MEDS ORDERED: BETAMETHASONE 30 MG/5 ML VIAL IM ONE (11:00)
[2018-03-11 11:03] VITALS: BP 123/61
[2018-03-11 11:27] LABS: CREATININE,URINE 127.7 mg/dL
== END 2018-03-11 11:48 | disposition home or self-care (01) ==
LOC: WFO 10:49 → FBP 10:53 → WFO 11:48
PROVIDERS: ATTEND Obstetrics & Gynecology
DX: O12.10 Gestational proteinuria, unspecified trimester (principal); Z3A.00 Weeks of gestation of pregnancy not specified
CPT/HCPCS: 59025; 82570; 84156; 96372

== ENCOUNTER 2018-03-13 10:51 | Outpatient (CLI) | payer BC ==
[2018-03-13 11:39] LABS: BASOPHILS % (AUTO) 0.1 %; EOSINOPHILS % (AUTO) 0.5 %; HGB - HEMOGLOBIN 9.2 g/dL (12.0-16.0); LYMPHOCYTES % (AUTO) 15.3 %; MEAN CORPUSCULAR HEMOGLOBIN 31.3 pg (27.0-31.0); MEAN CORPUSCULAR HGB CONC 33.9 g/dL (32.0-36.0); MEAN CORPUSCULAR VOLUME 92.5 fL (81.0-99.0); MEAN PLATELET VOLUME 9.6 fL (7.9-10.8); MONOCYTES % (AUTO) 6.1 %; PLT - PLATELET COUNT 158 10^3/uL (130-450); RED BLOOD COUNT 2.93 10^6/uL (4.20-5.40); RED CELL DISTRIBUTION WIDTH 13.6 % (12.0-15.0); WHITE BLOOD COUNT 16.9 x10^3/uL (4.8-10.8)
[2018-03-13 11:46] LABS: CREATININE 0.7 mg/dL (0.4-1.0)
[2018-03-13 12:20] LABS: CREATININE,URINE 74.7 mg/dL; PROTEIN/CREATININE RATIO,URINE 1.4 (<=0.2)
--- NOTE | 2018-03-13 12:24 | HISTORY & PHYSICAL EXAMINATION ---
Admit History - Instructions [place]/Slash: -Left hand click circles element as positive or present. -Right hand click slashes element as negative or not present. - Visit Reason Visit Reason: Other (SEVERE PREECLAMPSIA; 31W4D Gestation; IVF ) - : 2 Parity: 0 Premature: 0 Ectopic: 0 : 1 Care: positive: [facility] Risk/History: positive: Other (IVF ; history of prior IVF twin gestation loss) Complications This : positive: Pre-eclampsia Smoking Status: Never smoker - Mother's Labs Mother's Blood Type: positive: A, B Mother's RH: positive: Positive GBS: positive: Other (Unknown) Rubella Status: positive: Immune - Other Maternal History Other Maternal History: HPI: Mrs. Mary Lo is a 33-year-old woman who achieved through assisted reproduction/IVF. She has been watched closely over the last 7 days for symptoms of evolving preeclampsia. She completed a course of betamethasone on Tuesday morning. Today, she reports persistent mild headache (unchanged), lower extremity edema (unchanged) and facial swelling (increased) accompanied by persistent epigastric tenderness. Her baseline blood pressure at 15 weeks gestation was 102/60 and currently it is 150 over mid 90s. She does not have a personal history of hypertension. She feels as if she is getting sicker. Over the last 2 weeks she is gained almost 20 pounds. On Tuesday her 24 hour urine protein was 300 mg with a protein/creatinine ratio of 0.8 and normal liver enzymes.. She continues to have movement without contractions. Patient was sent to [facility] for repeat of labs and reassessment of her preeclampsia. Past surgical history: Patient underwent laparoscopic bilateral salpingectomy in February 2016 due to bilateral tubal occlusion and preparations for IVF. She had to IVF embryo transfers. Her first embryo transfer resulted in a twin that was spontaneously aborted at 9 weeks gestation. The current as a result of the second embryo transfer. Reference notes from [facility] fertility and IVF specialists of [place]. Family history: There is a strong family history of hypertension inclusive of mother, brothers, sisters and aunts. There is a family history of stroke. No known congenital anomalies, inheritable diseases or unexplained retardation. Social history happily . 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 She grew up in [place]. No drug tobacco or alcohol use Review of systems: * Constitutional Patient feels ill and reports malaise; * HEENT facial edema is noted before; * Cardiac negative; * Pulmonary slight breathlessness and air hunger; * GI negative except for persistent left greater than right upper quadrant pain; * negative for STDs or problems other than infertility; * Musculoskeletal increasing leg edema otherwise normal; * Neurologic no focal problems other than headache; * Skin no rashes or lesions; * Lymphatic/hematologic negative Meds/Allgy - Home Medications Home Medications: Ambulatory Orders Medication Instructions Recorded Confirmed [id number]/FA/Omega3/Dha/Fish Oil 1 tab PO DAILY 03/02/18 03/13/18 [ Gummies] Aspirin [Adult Aspirin] 81 mg PO DAILY 03/13/18 03/13/18 - Allergies Allergies/Adverse Reactions: Allergies Allergy/AdvReac Type Severity Reaction Status Date / Time No Known Drug Allergies Allergy Verified 03/02/18 15:15 Review of Systems - Constitutional Constitutional: reports: Fatigue, Malaise, Weakness - Cardiovascular Cariovascular: reports: Irregular heart rate (Occasional skipped beat with anxiety) - Respiratory Respiratory: reports: SOB at rest - Gastrointestinal Gastrointestinal: reports: Abdominal pain (Epigastric pain as noted in HPI) - Musculoskeletal Musculoskeletal: reports: Other (Marked edema reference HPI) - Psychiatric Psychiatric: reports: Anxiety (Mild anxiety due to evolving preeclampsia) - Hematologic/Lymphatic Hematologic/Lymphatic: reports: Other (No easy bleeding tendencies reported) Physical - Abdominal Exam Vital Signs: Temp Pulse Resp BP Pulse Ox 99.5 F 70 99 H 143/72 H 98 03/13/18 11:06 03/13/18 11:30 03/13/18 11:30 03/13/18 11:30 03/13/18 11:20 Contraction Frequency (min/apart): None - Monitoring Heart Rate Baseline: 135 Strip Review: positive: Category I - Presentation Presentation: positive: Vertex - Vaginal Exam Membranes: positive: Membranes intact Dilation (in cm): Cervical exam not a performed because patient is not in labor and does not Physical Exam - Physical Exam General: positive: No acute distress, Anxious, Alert HEENT: positive: EOMI, Moist mucous membranes, Dentition normal Neck: positive: Supple w/out meningeal sx Cardiac: positive: Regular Rate, Murmur Present (Murmur , normal) Resipratory: positive: Clear to ausultation gaetano Abdomen: positive: Normal Bowel sounds, Other (Mild liver tenderness, liver span increased to 12 cm on mid clavicular line right) Female : positive: Enlarged uterus (Uterus enlarged, 29 cm, recent ultrasound findings pacheco fetus at 37th percentile, male fetus) Back: positive: Normal ROM Extremities: positive: Other (Tibial edema, pitting extending up 14-17 cm from the ankle bilaterally; finger edema; facial edema) Skin: positive: Warm and dry Neurologic: positive: Alert and Oriented X 3, Normal motor/no weakness, Normal Sensation, Normal Speech PSYCH: positive: Anxious (Patient concerned about her evolving preeclamptic symptoms) Assessment/Plan - Assessment/Plan Assessment: Patient's symptoms are now evolving towards severe with help type features. Her liver enzymes of been elevated including LDH, ALT uric acid. Patient is a candidate for immediate delivery. However she is 31 weeks gestation and must be delivered at a level 3 center.Currently making arrangements for maternal transport to [facility]. Plan: Maternal transport * Patient suitable for ambulance transport to [facility]; * Mag sulfate drip will be in place (4 g loading dose with 2 g an hour); * [facility] confirms acceptance being arranged with Perez Colunga MD of maternal- medicine * Transport by ambulance
[2018-03-13 12:32] LABS: ABNORMAL LYMPHS % (MANUAL) 0 %
[2018-03-13 12:33] LABS: BAND NEUTROPHILS % (MANUAL) 3 %; LYMPHOCYTES # (MANUAL) 2.5 10^3/uL (1.5-3.5); LYMPHOCYTES % (MANUAL) 15 %; METAMYELOCYTES % (MANUAL) 4 %; MONOCYTES # (MANUAL) 1.4 10^3/uL (0.0-1.0); NEUTROPHILS # (MANUAL) 12.3 10^3/uL (1.5-6.6); NEUTROPHILS % (MANUAL) 70 %
[2018-03-13] MEDS ORDERED: CALCIUM GLUCONATE 1000 MG/10 ML VIAL ONE (12:34)
[2018-03-13 12:35] LABS: PLATELET MORPHOLOGY 1+ LARGE PLATELETS (NORMAL)
[2018-03-13] MEDS ORDERED: MAGNESIUM SULFATE IN WATER 20 GM/500 ML IV.SOLN IV ONE (12:35)
[2018-03-13] MEDS ORDERED: SODIUM CHLORIDE FLUSH 0.9% 10 ML SYRINGE ONE (12:35)
[2018-03-13] MEDS ORDERED: LACTATED RINGERS 1,000 ML IV ONE (12:35)
[2018-03-13] MEDS: MAGNESIUM SULFATE 2 GRAM 4 GM/100 ML BAG IV ONE ×2 (12:50→13:01)
[2018-03-13] MEDS ORDERED: MAGNESIUM SULFATE 2 GRAM 2 GM/50 ML BAG IV SCH (12:50)
[2018-03-13] MEDS ORDERED: ONDANSETRON 4 MG/2 ML VIAL IVP SCH (13:55)
[2018-03-13] MEDS ORDERED: ONDANSETRON 4 MG/2 ML VIAL ONE (13:56)
[2018-03-13 15:48] VITALS: BP 154/82
[2018-03-13] MEDS ORDERED: MAGNESIUM SULFATE IN WATER 20 GM/500 ML IV.SOLN IV SCH (16:30)
== END 2018-03-13 15:25 | disposition short-term general hospital (02) ==
LOC: WFO 10:51 → FBP 10:52 → WFO 15:25
PROVIDERS: ATTEND Obstetrics & Gynecology
DX: O14.13 Severe pre-eclampsia, third trimester (principal); Z3A.31 31 weeks gestation of pregnancy; O09.813 Supervision of pregnancy resulting from assisted reproductive technology, third trimester
CPT/HCPCS: 36415; 59025; 82565; 82570; 83615; 84156; 84450; 84550; 85025; 96365; 96375; J7120; 99215

== ENCOUNTER 2018-06-13 12:06 | Outpatient (CLI) | payer BC ==
--- NOTE | 2018-06-13 13:25 | XRAY Report ---
Procedure Date: 06/13/2018 Accession Number: [id number] / [id number] Procedure: XRN - Chest 2 View X-Ray CPT Code: 56248 FULL RESULT: EXAM: Chest 2 View X-Ray DATE: 06/13/2018 12:19 PM CLINICAL HISTORY: NONSPEC REACTION TO GAMMA INTRFRN RESPNS W/O ACTV COMPARISON: None. TECHNIQUE: 2 views. FINDINGS: Lungs/Pleura: No focal opacities evident. No pneumothorax or pleural effusion. Normal volumes. Mediastinum: Heart and mediastinal contours are unremarkable. Other: None. IMPRESSION: Normal 2-view chest radiography. RADIA
== END 2018-06-13 12:07 | disposition home or self-care (01) ==
LOC: DI.N 12:06
PROVIDERS: ATTEND Internal Medicine Infectious Disease
DX: R76.12 Nonspecific reaction to cell mediated immunity measurement of gamma interferon antigen response without active tuberculosis (principal)
CPT/HCPCS: 71046

== ENCOUNTER 2020-12-24 14:14 | Outpatient (CLI) | payer BC ==
--- NOTE | 2020-12-24 15:06 | SLEEP CARE CONSULTATION ---
Information from patient questionnaire entered by Basia Jamse. I have reviewed and concur with the information entered by Basia James. This document represents the service I personally performed and the decisions made by me, Anne Marie Junior ARNP. History of Present Illness Service Date and Time: 12/24/2020 1414 Reason for Visit: New patient Chief Complaint: reports: Snoring, Excessive daytime sleepiness (she has a small baby at home). denies: Unrefreshed sleep, Observed pauses in breathing, Frequent awakenings at night Usual bedtime: 9 PM (10 PM ) to 7 AM Time it takes to fall asleep: 30 minutes Snores at night: Yes Observed to quit breathing while asleep: No Sleeps alone due to snoring: No Number of times waking at night: Once Reasons for waking at night: reports: Other (Out of sleep). denies: Choking, Snoring, Gasping for air Toss, Turn, or Twitch while sleeping: No Recalls having dreams: Yes Usually gets out of bed at: 7 AM Feels refreshed in the morning: Yes Morning headache: Yes (twice a month) Sleepy or fatigued during the day: Yes Ever fallen asleep while driving: No Takes day naps: Yes (on the weekends) Dreams during day naps: No Prior sleep studies: No Additional HPI information: I had the pleasure of seeing YOLANDE LYONS today regarding the possibility of her having a sleep disorder. Her current complaints are loud snoring and difficulty breathing through nose. She went to her doctor with an ear infection and was talking about how her nose is congested and hard to breathe through at night causing loud snoring. She states most days she wakes up rested but other days she wakes up not rested and has headaches. She states this happens about 2 times a month. She has a small baby that gets her up at night so sometimes she is tired during the day. 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 Patient is and lives in [place]. Have you smoked in the past 12 months: No Alcohol use: No Caffeine use: No Family History Family history of sleep disordered breathing: Yes (Both parents) Family Hx Sleep Apnea: Mother: Snoring, Father: Snoring Allergies and Home Medications Drug allergies reviewed: Yes (NKDA) Home medication list reviewed: Yes Allergy and home medication list: Amoxicillin and clauvulanate potassium Ofloxacin otic solution Prednisolone acetate ophthalmic suspension Review of Systems Weight gain over past 5 years: 30 Weight loss over past 5 years: 10 Cardiovascular: denies: high blood pressure Gastrointestinal: denies: heartburn Neurological: denies: headaches Ear/Nose/Throat: reports: nasal congestion. denies: dry mouth/throat, injury to nose, tonsillectomy, wisdom teeth removed Endocrine: denies: thyroid disease Immunologic: denies: allergies to food or environment Physical Exam Blood Pressure: 113/79 Cuff size: wrist Heart Rate: 63 O2 Saturation: 100 Height: 5 ft 3 in Weight: 185 lb Body Mass Index: 32.8 BMI Classification: Obese Neck circumference: 14.45 (inches) Nostrils: patent to airflow Turbinates: swollen Mouth and throat: narrow oropharynx Uvula visualization: 25% Mallampati Class III Tongue: enlarged in size with teeth miller on lateral edges Tonsils: 1+ Neck: normal w/o lymphadenopathy or thyromegaly Heart: regular rate and rhythm Lungs: clear bilaterally Impression and Plan 1. Suspected Obstructive Sleep Apnea-Hypopnea Syndrome, as suggested by a history of loud and irregular snoring, morning headache, and excessive daytime sleepiness. Narrow oropharynx and obesity are common predisposing factors for obstructive sleep apnea-hypopnea syndrome. I recommend proceeding to polysomnography to confirm the diagnosis and to assess severity. If the patient has significant sleep disordered breathing, a manual CPAP titration study will also be performed to find the optimal treatment pressure. I informed the patient of what the sleep studies involve and after some discussion, obtained agreement to proceed. The pathophysiology of obstructive sleep apnea-hypopnea syndrome was discussed with the patient and health risks of cardiovascular and cerebrovascular disease if not treated. AAS brochure for obstructive sleep apnea-hypopnea syndrome given and reviewed. Risks of drowsy driving discussed in detail and patient advised to avoid long distance driving and to head well puller at the first sign of drowsiness. Patient agreed to plan. * Schedule polysomnography +- manual CPAP titration study and return in 1-2 weeks after the study to discuss result and initiate therapy. * Avoid long distance driving or driving when feeling sleepy. * Avoid sedative and muscle relaxant around bedtime. * Attempt to lose weight. * Review instructions provided by trained office staff on how to prepare for the sleep study. * Return for follow-up after sleep study completed. Counseling Topics: Weight loss health impact Visit Type: In Office Time Spent with Patient (minutes): 31 Provider Statement: I spent 100% of the Face to Face Visit with the patient with greater than 50% spent counseling the patient and coordination of care.
[2020-12-24 15:07] VITALS: BP 113/79
== END 2020-12-24 14:15 | disposition home or self-care (01) ==
LOC: SC 14:14
PROVIDERS: ATTEND Nurse Practitioner Family
DX: G47.10 Hypersomnia, unspecified (principal); R06.83 Snoring; R51.9 Headache, unspecified; E66.9 Obesity, unspecified; Z68.32 Body mass index [BMI] 32.0-32.9, adult
CPT/HCPCS: 99203; 99212

== ENCOUNTER 2021-02-24 14:52 | Outpatient (CLI) | payer BC | END 2021-02-24 14:53 | disposition home or self-care (01) | LOC: SC 14:52 | PROVIDERS: ATTEND Nurse Practitioner Family | DX: G47.10 Hypersomnia, unspecified (principal); R06.83 Snoring; R51.9 Headache, unspecified; E66.9 Obesity, unspecified; Z68.32 Body mass index [BMI] 32.0-32.9, adult | CPT/HCPCS: 95806 ==

== ENCOUNTER 2021-03-05 16:15 | Outpatient (CLI) | payer BC ==
--- NOTE | 2021-03-05 16:25 | SLEEP CARE CONSULTATION ---
Information from patient questionnaire entered by Basia James. I have reviewed and concur with the information entered by Basia James. This document represents the service I personally performed and the decisions made by , Anne Marie Junior ARNP. History of Present Illness Service Date and Time: 03/05/2021 1620 Initial [place] Sleepiness Scale score: 10 (in 2020) Current [place] Sleepiness Scale score: 10 Additional HPI information: YOLANDE LYONS returns via Telehealth visit for follow up and results of the recently performed home sleep study. The patient was informed of the following findings: no significant sleep disordered breathing with an average AHI of 4.2 and antonio oxygen saturation of 81%. I explained the pathophysiology behind obstructive sleep apnea. Patient does not have sleep apnea and was advised how weight gain could increase the risk of developing sleep apnea in the future. I strongly encouraged the patient to lose weight. Patient has minimal snoring. Snoring can be reduced by weight loss. Weight loss is best achieved with diet consult. Patient instructed to contact PCP for referral. Snoring can also be treated with an oral appliance from a dentist. Advised to check insurance coverage. In addition, an ENT evaluation can be do to see if other treatment is indicated. Patient does not drink alcohol. Patient was cautioned about risks of drowsy driving until sleepiness symptoms resolve. Sleep Study - Results Type of Sleep Study: Home sleep study Prior sleep studies: No Polysomnography/Home Sleep Study results: Physician Impression: The quality of the study is good. The length of the study is adequate (> 240 minutes). Please also see the tabulated and graphic data. 1. No significant sleep disordered breathing, with an AHI of 4.2/hr and antonio SaO2 of 81%. During the study, the patient had 26 apneas (25 obstructive, 0 central, 1 mixed) and 0 hypopneas. The longest episode lasted 29.0 seconds. The few respiratory events occurred independently of sleep stage and body position (supine AHI was 4.3 and non-supine, 3.76). 2. Hypoxemia (ICD-10 R09.02), minimal, with the lowest oxygen saturation of 81 % and 0.7 minutes with SaO2 under 90%. Baseline oxygen saturation was normal (Average oxygen saturation was 97%). Allergies and Home Medications Home medication list reviewed: Yes (no new meds) Review of Systems Review of systems same as previous: Yes (no changes) Physical Exam Vital signs obtained and entered by: Telehealth visit to reduce exposure during Pandemic exposure Height: 5 ft 3 in Impression and Plan Snoring but no significant sleep disordered breathing. Patient advised that often weight loss will reduce snoring as well as apnea risk. An oral appliance can also be used for snoring. This would require a dental consultation. Patient cautioned not to use other online appliances as can cause bite issues. A list of accredited dentists in [facility] and one local dentist who makes oral appliances is available in office. Patient is advised to check if insurance will cover. An ENT consult can also be helpful to determine if any other treatment is an option. * Attempt to lose weight * Avoid alcohol consumption near bedtime * The patient is cautioned about driving until sleepiness is completely resolved. * Return in as needed for follow up. Counseling Topics: Weight loss health impact Visit Type: Telehealth Video Video Type: VSee Patient Location: Home Location of Provider: Office Patient agrees and consents to this telehealth visit type: Yes Time Spent with Patient (minutes): 11 Provider Statement: I spent 100% of the Telehealth Video Call with the patient with greater than 50% spent counseling the patient and coordination of care.
== END 2021-03-05 16:16 | disposition home or self-care (01) ==
LOC: SC 16:15
PROVIDERS: ATTEND Nurse Practitioner Family
DX: G47.10 Hypersomnia, unspecified (principal); R06.83 Snoring; R51.9 Headache, unspecified; E66.9 Obesity, unspecified; Z68.32 Body mass index [BMI] 32.0-32.9, adult

== ENCOUNTER 2021-06-23 13:46 | Emergency (ER) | payer BC ==
[2021-06-23 13:59] VITALS: BP 116/78
--- NOTE | 2021-06-23 14:19 | ED Physician Documentation ---
History of Present Illness - Stated complaint Stated Complaint: FEVER/COUGH - Chief complaint Chief Complaint: Resp - Additonal information Additional information: 36-year-old female presents the emergency department for evaluation of cough, congestion generalized body aches. Denies loss of taste or smell. She does endorse 2 episodes of watery stools. She received her first Pfizer vaccine for Covid in early June. She is scheduled to have her second dose next week. Her young son was seen in this ER on Tuesday, 19 June and was diagnosed with RSV. Review of Systems Constitutional: reports: Fever, Myalgias. denies: Chills Eyes: reports: Reviewed and negative Ears: reports: Reviewed and negative Nose: reports: Rhinorrhea / runny nose, Congestion Throat: reports: Reviewed and negative Cardiac: denies: Chest pain / pressure, Palpitations Respiratory: reports: Cough. denies: Dyspnea, Hemoptysis, Wheezing GI: denies: Abdominal Pain : reports: Reviewed and negative Skin: reports: Reviewed and negative PD PAST MEDICAL HISTORY - Present Medications Home Medications: Ambulatory Orders Medication Instructions Recorded Confirmed Pnv No.103/Folic/Om3s/Fish Oil 1 tab PO DAILY 03/02/18 03/13/18 [ Gummies] Aspirin [Adult Aspirin] 81 mg PO DAILY 03/13/18 03/13/18 - Allergies Allergies/Adverse Reactions: Allergies Allergy/AdvReac Type Severity Reaction Status Date / Time No Known Drug Allergies Allergy Verified 06/23/21 13:56 - Social History Does the pt smoke?: No Smoking Status: Never smoker Does the pt drink ETOH?: No Does the pt have substance abuse?: No PD ED PE NORMAL - General General: Alert and oriented X 3, No acute distress - HEENT HEENT: PERRL - Neck Neck: Supple, no meningeal sign - Cardiac Cardiac: RRR, No murmur - Respiratory Respiratory: Clear bilaterally - Abdomen Abdomen: Normal bowel sounds, Soft, Non tender, Non distended - Back Back: No CVA TTP, No spinal TTP - Derm Derm: Normal color, Warm and dry - Extremities Extremities: No deformity - Neuro Neuro: Alert and oriented X 3 Eye Opening: Spontaneous Motor: Obeys Commands - Psych Psych: Normal mood Results - Vitals Vitals: Vital Signs - 24 hr 06/23/21 13:56 Temperature 36.9 C Heart Rate 100 Respiratory 16 Rate Blood Pressure 116/78 O2 Saturation 98 Oxygen O2 Source Room air PD MEDICAL DECISION MAKING - ED course Complexity details: d/w patient ED course: This is a well-appearing 36-year-old female that presents to the emergency department for evaluation of cough, congestion fatigue and body aches. Her son was diagnosed with RSV on the 13th of this month. Patient has received only the first of her 2 doses Covid vaccine. Her cardiopulmonary exam is unremarkable. No hypoxia or labored breathing. No high risk history such as diabetes, asthma or hypertension. We will send COVID-19 screen. Patient was advised to remain in quarantine until the results are known though this likely represents a viral URI such as RSV gi lovely similar in her son number of days ago. Emergent and worrisome return precautions were discussed. Departure - Departure Disposition: 01 Home, Self Care Clinical Impression: Upper respiratory infection Qualifiers: URI type: unspecified viral URI Qualified Code(s): J06.9 - Acute upper respiratory infection, unspecified Condition: Stable Record reviewed to determine appropriate education?: Yes Instructions: ED Viral Syndrome Comments: You are seen in the ER today for a few days of cough, congestion, body aches and fatigue. Your son recently tested positive for RSV before you developed your symptoms. You most likely have the same virus causing his cough and congestion. We are doing a screening test today to ensure that you do not have COVID-19. I do recommend that you get plenty of rest and drink lots of fluids. [id number] cough medications such as Mucinex or Robitussin can be used. We will notify you only if the Covid test is positive. We should have the results back within the next 24 to 48 hours. If any point you develop fevers higher than 103, have difficulty breathing, develop chest pain then please return to the ER for a second look.
== END 2021-06-23 14:30 | disposition home or self-care (01) ==
LOC: ED 13:46
DX: J06.9 Acute upper respiratory infection, unspecified (principal); Z20.822 Contact with and (suspected) exposure to COVID-19
CPT/HCPCS: 99282; 99283

== ENCOUNTER 2021-11-19 08:00 | Outpatient (CLI) | payer BC | END 2021-11-19 23:59 | LOC: LAB.N 08:00 | PROVIDERS: ATTEND Physician Assistant | DX: U07.1 COVID-19 (principal) ==